=== PATIENT | male | born 1985 | race Asian ===

== ENCOUNTER 2016-11-29 15:22 | Outpatient (CLI) | payer MEDICAID ==
[2016-11-29 18:23] LABS: BASOPHILS # (AUTO) 0.1 10^3/uL (0.0-0.1); BASOPHILS % (AUTO) 1.3 %; EOSINOPHILS # (AUTO) 0.1 10^3/uL (0.0-0.7); EOSINOPHILS % (AUTO) 1.6 %; HCT - HEMATOCRIT 44.2 % (42.0-52.0); HGB - HEMOGLOBIN 15.2 g/dL (14.0-18.0); LYMPHOCYTES # (AUTO) 1.3 10^3/uL (1.5-3.5); LYMPHOCYTES % (AUTO) 22.1 %; MEAN CORPUSCULAR HEMOGLOBIN 29.5 pg (27.0-31.0); MEAN CORPUSCULAR HGB CONC 34.4 g/dL (32.0-36.0); MEAN CORPUSCULAR VOLUME 85.7 fL (80.0-94.0); MEAN PLATELET VOLUME 10.3 fL (7.4-11.4); MONOCYTES # (AUTO) 0.7 10^3/uL (0.0-1.0); MONOCYTES % (AUTO) 11.6 %; NEUTROPHILS # (AUTO) 3.7 10^3/uL (1.5-6.6); NEUTROPHILS % (AUTO) 63.4 %; RED BLOOD COUNT 5.15 10^6/uL (4.70-6.10); RED CELL DISTRIBUTION WIDTH 12.6 % (12.0-15.0); UNCORRECTED WHITE BLOOD COUNT 5.7 x10^3/uL; WHITE BLOOD COUNT 5.7 x10^3/uL (4.8-10.8)
[2016-11-29 18:40] LABS: ALBUMIN/GLOBULIN RATIO 1.8 (1.0-2.2); BILIRUBIN,TOTAL 1.1 mg/dL (0.2-1.0); CALCIUM 9.5 mg/dL (8.5-10.3); CREATININE 0.9 mg/dL (0.6-1.2); POTASSIUM 3.8 mmol/L (3.5-5.0); TOTAL PROTEIN 7.7 g/dL (6.7-8.2)
[2016-11-29 18:44] LABS: MONO NEG QC NEGATIVE (Negative); MONO POS QC POSITIVE (Positive)
== END 2016-11-29 15:23 | disposition home or self-care (01) ==
LOC: LAB.F 15:22
PROVIDERS: ATTEND Nurse Practitioner Family
DX: R59.1 Generalized enlarged lymph nodes (principal); R53.83 Other fatigue
CPT/HCPCS: 36415; 80053; 84443; 85025; 86308

== ENCOUNTER 2016-12-13 08:00 | Outpatient (CLI) | payer MEDICAID ==
[2016-12-13 19:32] LABS: IRON 74 ug/dL (45-182); TOTAL IRON BINDING CAPACITY 294 ug/dL (250-450); TRANSFERRIN 210 mg/dL (180-329)
[2016-12-14 10:17] LABS: TEST RESULT REPORT (())
[2016-12-15 13:33] LABS: ANA SCREEN NEGATIVE (NEGATIVE)
== END 2016-12-13 08:01 | disposition home or self-care (01) ==
LOC: LAB.F 08:00
PROVIDERS: ATTEND Nurse Practitioner Family
DX: R53.83 Other fatigue (principal)
CPT/HCPCS: 36415; 81599; 82607; 83540; 84466; 85651; 86038; 86140; 86430; 86592; 86695; 86696; 86803; 87389; 87491; 87591

== ENCOUNTER 2017-01-04 11:35 | Outpatient (CLI) | payer MEDICAID ==
--- NOTE | 2017-01-04 17:12 | CT Report ---
CT SINUSES WITHOUT CONTRAST: 01/04/2017 CLINICAL INDICATION: Malaise and fatigue. TECHNIQUE: Axial CT images of the paranasal sinuses were obtained without contrast, following which sagittal and coronal reconstructions were performed. FINDINGS: There is mild mucosal thickening in the left maxillary sinus. Postoperative changes are s een in the medial wall of the left maxillary sinus. Roby air cells are seen in the superior portio n of the right maxillary sinus. The osteomeatal units are patent. The septum is midline. The ethmo id air cells, sphenoid sinus, and frontal sinuses are unremarkable. 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 IMPRESSION: MILD CHRONIC SINUS DISEASE IN THE LEFT MAXILLARY SINUS. In accordance with CT protocol optimization, one or more of the following dose reduction techniques w ere utilized for this exam: automated exposure control, adjustment of mA and/or KV based on patient size, or use of iterative reconstructive technique. JOB #: [id number] EXT JOB #:[id number]
== END 2017-01-04 11:36 | disposition home or self-care (01) ==
LOC: DI 11:35
PROVIDERS: ATTEND Nurse Practitioner Family
DX: R53.81 Other malaise (principal); R53.83 Other fatigue
CPT/HCPCS: 70486

== ENCOUNTER 2020-08-27 10:47 | Emergency (ER) | payer MEDICAID ==
[2020-08-27 10:59] VITALS: BP 147/81
--- NOTE | 2020-08-27 11:10 | ED Physician Documentation ---
PD HPI LOWER EXT INJURY - Stated complaint Stated Complaint: RT FOOT PX - Chief complaint Chief Complaint: Ext Problem - History obtained from History obtained from: Patient - History of Present Illness PD HPI LOW EXT INJURY LOCATION: Right, Foot (5th) Where injury occurred: Home Pain level max: 6 Pain level now: 4 Improved by: Rest Worsened by: Moving, Palpating Associated symptoms: No: Weakness, Numbness, Tingling, Swelling, Discolored Contributing factors: No: Anticoagulated Recently seen: Not recently seen - Additional information Additional information: 34-year-old male states that he stubbed his right fifth toe at home today. Concerned that it may be broken. Worse with movement, better with rest. No swelling. No changes in color. Review of Systems Constitutional: denies: Fever, Chills Respiratory: denies: Cough GI: denies: Nausea, Vomiting, Diarrhea Skin: denies: Rash Musculoskeletal: denies: Neck pain, Back pain Neurologic: denies: Headache PD PAST MEDICAL HISTORY - Past Medical History Past Medical History: No Cardiovascular: None Respiratory: None Endocrine/Autoimmune: None GI: None : None HEENT: None Psych: None Musculoskeletal: None Derm: None - Past Surgical History Past Surgical History: Yes - Present Medications Home Medications: Ambulatory Orders Medication Instructions Recorded Confirmed No Known Home Medications 07/02/15 03/11/16 - Allergies Allergies/Adverse Reactions: Allergies Allergy/AdvReac Type Severity Reaction Status Date / Time No Known Drug Allergies Allergy Verified 07/02/15 14:27 - Social History Does the pt smoke?: No Smoking Status: Never smoker Does the pt drink ETOH?: Yes Does the pt have substance abuse?: No - Immunizations Immunizations are current?: Yes Immunizations: TDAP >10years/unknown - POLST Patient has POLST: No PD ED PE NORMAL - Vitals Vital signs reviewed: Yes - General General: Alert and oriented X 3, No acute distress - HEENT HEENT: Moist mucous membranes - Respiratory Respiratory: No respiratory distress - Derm Derm: Warm and dry - Extremities Extremities: Other (Tender to palpation over the proximal phalanx of the right fifth toe. Otherwise normal examination of the right foot. No swelling. No ecchymosis. Neurovascular intact) - Neuro Neuro: Alert and oriented X 3 Results - Vitals Vitals: Vital Signs - 24 hr 08/27/20 10:55 Temperature 36.5 C Heart Rate 81 Respiratory 18 Rate Blood Pressure 147/81 H O2 Saturation 100 Oxygen O2 Source Room air - Rads (name of study) R 5th toe xray Radiology: Prelim report reviewed, EMP read contemporaneously, See rad report (Mild soft tissue swelling is present adjacent to what appears to be an articular margin fracture, measuring 1.5 x 2.5 mm, distal lateral aspect of the fifth proximal phalanx. ) PD MEDICAL DECISION MAKING - ED course Complexity details: reviewed results, re-evaluated patient, considered differential, d/w patient ED course: 34-year-old male with a possible articular margin fracture. Patient declines a postop shoe and trinity taping. Patient will weight-bear as tolerated. Patient counseled regarding signs and symptoms for which I believe and urgent re- evaluation would be necessary. Patient with good understanding of and agreement to plan and is comfortable going home at this time This document was made in part using voice recognition software. While efforts are made to proofread this document, sound alike and grammatical errors may occur. Departure - Departure Disposition: 01 Home, Self Care Clinical Impression: Fracture of fifth toe, right, closed Qualifiers: Encounter type: initial encounter Qualified Code(s): S92.501A - Displaced unspecified fracture of right lesser toe(s), initial encounter for closed fracture Condition: Good Instructions: ED Fx Toe Closed Follow-Up: your,doctor in 1 week [Other] Comments: Follow-up with your doctor for further care. Return if you worsen. There is likely a small fracture on your x-ray today, this should heal without difficulty. You may bear weight as tolerated. You can use Motrin or Tylenol as needed for pain. Discharge Date/Time: 08/27/20 12:00
--- NOTE | 2020-08-27 11:36 | XRAY Report ---
PROCEDURE: Toe(s) RT INDICATIONS: fall, R 5th MT and 5th toe pain TECHNIQUE: 3 views of the fifth toe(s) acquired. COMPARISON: None FINDINGS: Bones: No fractures or dislocations involving the fifth metatarsal is found. There is a small articu lar margin fracture found at the distal lateral margin of the fifth proximal phalangeal articular bor irina.. No suspicious bony lesions. Soft tissues: No suspicious soft tissue densities. IMPRESSION: Mild soft tissue swelling is present adjacent to what appears to be an articular margin fracture, richard suring 1.5 x 2.5 mm, distal lateral aspect of the fifth proximal phalanx. Reviewed by: Steven Muhammad MD on 08/27/2020 11:34 AM PDT Approved by: Steven Muhammad MD on 08/27/2020 11:34 AM PDT Station ID: [id number]
== END 2020-08-27 12:00 | disposition home or self-care (01) ==
LOC: ED 10:47
DX: S92.511A Displaced fracture of proximal phalanx of right lesser toe(s), initial encounter for closed fracture (principal); W22.8XXA Striking against or struck by other objects, initial encounter; Y92.009 Unspecified place in unspecified non-institutional (private) residence as the place of occurrence of the external cause
CPT/HCPCS: 99282; 99283

== ENCOUNTER 2020-11-24 14:16 | Emergency (ER) | payer MEDICAID ==
--- NOTE | 2020-11-24 15:03 | XRAY Report ---
PROCEDURE: Foot 3 View LT INDICATIONS: Trauma TECHNIQUE: 3 views of the foot were acquired. COMPARISON: None. FINDINGS: Bones: No fractures or dislocations. No suspicious bony lesions. Soft tissues: No tibiotalar joint effusion. Achilles tendon appears normal. IMPRESSION: No trauma found. Reviewed by: Steven Muhammad MD on 11/24/2020 3:02 PM PDT Approved by: Steven Muhammad MD on 11/24/2020 3:02 PM PDT Station ID: [id number]
[2020-11-24] MEDS ORDERED: BUFFERED LIDOCAINE 10 ML SYRINGE SUBQ STA (17:39)
[2020-11-24] MEDS ORDERED: HYDROmorphone 1 MG/ML CARPUJECT IVP STA (17:40)
[2020-11-24] MEDS ORDERED: BACITRACIN ZINC OINT 1 PACKET TOP STA (17:40)
--- NOTE | 2020-11-24 17:41 | ED Physician Documentation ---
History of Present Illness - Stated complaint Stated Complaint: L FOOT PX - Chief complaint Chief Complaint: Trauma Ext - Additonal information Additional information: 35-year-old male presents the emergency department for evaluation of acute left foot pain. He got up this morning to use the restroom at about 430 and stubbed his foot hard on the door. No history of previous injury. He presents with swelling and tenderness on the left lateral distal foot. Review of Systems Constitutional: denies: Fever, Chills Eyes: reports: Reviewed and negative Nose: reports: Reviewed and negative Throat: reports: Reviewed and negative Cardiac: reports: Reviewed and negative Respiratory: reports: Reviewed and negative GI: reports: Reviewed and negative : denies: Dysuria, Frequency, Hesitancy Skin: reports: Laceration (s) (Left foot between the small and ring toe) Musculoskeletal: reports: Extremity pain (Left foot) Neurologic: reports: Reviewed and negative Psychiatric: reports: Reviewed and negative PD PAST MEDICAL HISTORY - Past Medical History Cardiovascular: None Respiratory: None Endocrine/Autoimmune: None GI: None : None HEENT: None Psych: None Musculoskeletal: None Derm: None - Past Surgical History Past Surgical History: Yes - Present Medications Home Medications: Ambulatory Orders Medication Instructions Recorded Confirmed HYDROcod/ACETAM 5/325 [[place] 5/325] 1 tablet PO BID PRN #10 tablet 11/24/20 cephALEXin [Keflex] 500 mg PO Q6H #28 11/24/20 - Allergies Allergies/Adverse Reactions: Allergies Allergy/AdvReac Type Severity Reaction Status Date / Time No Known Drug Allergies Allergy Verified 11/24/20 14:36 - Social History Does the pt smoke?: No Smoking Status: Never smoker Does the pt drink ETOH?: Yes Does the pt have substance abuse?: No - Immunizations Immunizations are current?: Yes Immunizations: TDAP >10years/unknown - POLST Patient has POLST: No PD ED PE EXPANDED - General General: Alert, No acute distress - Extremities Extremities: Left foot (Swelling tenderness and ecchymosis left lateral foot at MCP joints of the small and ring toe. There is a 2 cm laceration in the webbing between the small and ring toe.) Results - Vitals Vitals: Vital Signs - 24 hr 11/24/20 14:32 Temperature 36.8 C Heart Rate 89 Respiratory 16 Rate Blood Pressure 150/79 H O2 Saturation 100 Oxygen O2 Source Room air - Rads (name of study) left foot Radiology: Final report received (No acute fracture or dislocation) Procedures - Laceration (location) left foot Length in cm: 2.5 Wound type: Linear, Irregular, Into muscle, Heavily Contaminated Neurovascular status: Sensory intact, Motor intact Tendon involvement: Tendon intact Anesthesia: Lidocaine 1% Wound preparation: Chlorhexadine, Irrigated copiously NS, Debrided moderately, Wound explored Skin layer closure: Interrupted, Size #-0 - enter number (4), Sutures - enter # (5) Other: Patient tolerated well, Dressing applied, Tetanus UTD PD MEDICAL DECISION MAKING - ED course Complexity details: reviewed results, re-evaluated patient, d/w patient ED course: 35 year old male comes to the ED with left foot pain after stubbing it on a door this am. Xray without findings of fx. however he does have significant bruisi ng and contusion. unfortunately he also had a laceration in the webbing between the small and ring toe. It was heavily contaminated. wound copiously irrigated and approximated with [address] on keflex. tetnus is utd in 2016. Routine wound care discussed. I am prescribing a short course of short-acting opioid pain medication for this patient. I have reviewed the patients [employer] and no concerning findings were noted. I have discussed that the opioids are for short term therapy only, and will not be refilled from the ED. Departure - Departure Disposition: 01 Home, Self Care Clinical Impression: Contusion of left foot including toes Qualifiers: Encounter type: initial encounter Qualified Code(s): S90.32XA - Contusion of left foot, initial encounter; S90.122A - Contusion of left lesser toe(s) without damage to nail, initial encounter Foot laceration Qualifiers: Encounter type: initial encounter Laterality: left Qualified Code(s): S91.312A - Laceration without foreign body, left foot, initial encounter Condition: Stable Record reviewed to determine appropriate education?: Yes Prescriptions: cephALEXin [Keflex] 500 mg PO Q6H #28 HYDROcod/ACETAM 5/325 [[place] 5/325] 1 tablet PO BID PRN #10 tablet PRN Reason: Pain Comments: Sutures should be removed in 7 days. in 24 hours gently wash with warm soap and water, pat dry and apply antibviotic ointment Use the crutches to get around and wear the post op show until wound healed. Fill the rx for antibiotics. Return to the ED for concerns of infection I am prescribing a short course of narcotic pain medication for you. These are potentially dangerous and addictive medications that should be used carefully. These medications may constipate you. Take an izrw-bgl-dyyhoyi stool softener (docusate) twice daily with plenty of water while taking these medications. If you go 24 hours without a bowel movement, take mnjn-zql-tuawiet miralax, per package instructions. Do not drink or drive while taking these medications. If you received narcotic or sedating medications while in the emergency department, do not drive for 24 hours. Store this medication in a safe, secure place and out of reach of children. It is a violation of federal law to give or sell this medication to another person or to use in a manner other than prescribed. The ED will not refill narcotic prescriptions, including prescriptions lost or stolen. To dispose of unwanted medications: 1. [facility] at [address] [place] [address] in [place] has a medication drop box. They accept prescription medications (in pill form) Sunday through Sunday 9:00 a.m. to 5:00 p.m. 2. The [facility] accepts prescription medications (in pill form only) for disposal year round. Call for more information. 3. Contact the [facility] for the next [facility] sponsored prescription drug collection event. , [phone], or [phone]; Note that many narcotic pain relievers also contain Tylenol/acetaminophen. Please ensure that your total dose of acetaminophen from all sources does not exceed 3 g (3000 mg) per day.
[2020-11-24] MEDS ORDERED: HYDROmorphone 1 MG/ML CARPUJECT IM STA ×2 (18:08→19:50)
[2020-11-24] MEDS ORDERED: cefTRIAXone 1 GM VIAL IM STA (19:17)
[2020-11-24] MEDS ORDERED: LIDOCAINE 1% 2 ML VIAL MC ONE (19:17)
[2020-11-24 20:00] VITALS: BP 147/85
== END 2020-11-24 20:05 | disposition home or self-care (01) ==
LOC: ED 14:16
DX: S90.32XA Contusion of left foot, initial encounter (principal); S91.312A Laceration without foreign body, left foot, initial encounter; W22.8XXA Striking against or struck by other objects, initial encounter
CPT/HCPCS: 12041; 73630; 96372; 96374; 99283; A9270; J1170

== ENCOUNTER 2020-12-01 12:17 | Emergency (ER) | payer MEDICAID ==
[2020-12-01 12:32] VITALS: BP 130/84
--- NOTE | 2020-12-01 12:38 | ED Physician Documentation ---
History of Present Illness - Stated complaint Stated Complaint: STITCH REMOVAL - Additonal information Additional information: 35-year-old male presents emergency department for evaluation of laceration sustained 1 week ago when he stubbed his toe on a door. He sustained a lacer ation between the fourth and fifth toes on his left foot. There was no fracture but given the location and the depth of the wound he was placed on antibiotics. He reports pain is been well controlled he has completed the course of cephalexin. Here today for suture removal. Review of Systems Constitutional: reports: Reviewed and negative Throat: reports: Reviewed and negative Cardiac: reports: Reviewed and negative Respiratory: reports: Reviewed and negative GI: reports: Reviewed and negative : reports: Reviewed and negative Skin: reports: Laceration (s) (Left foot) Musculoskeletal: reports: Extremity pain (Left foot) PD PAST MEDICAL HISTORY - Past Medical History Cardiovascular: None Respiratory: None Endocrine/Autoimmune: None GI: None : None HEENT: None Psych: None Musculoskeletal: None Derm: None - Past Surgical History Past Surgical History: Yes - Present Medications Home Medications: Ambulatory Orders Medication Instructions Recorded Confirmed HYDROcod/ACETAM 5/325 [[place] 5/325] 1 tablet PO BID PRN #10 tablet 11/24/20 12/01/20 cephALEXin [Keflex] 500 mg PO Q6H #28 11/24/20 12/01/20 - Allergies Allergies/Adverse Reactions: Allergies Allergy/AdvReac Type Severity Reaction Status Date / Time No Known Drug Allergies Allergy Verified 12/01/20 12:32 - Social History Does the pt smoke?: No Smoking Status: Never smoker Does the pt drink ETOH?: Yes Does the pt have substance abuse?: No - Immunizations Immunizations are current?: Yes Immunizations: TDAP >10years/unknown - POLST Patient has POLST: No PD ED PE EXPANDED - Derm Derm: Laceration(s) (Well-healed laceration in the webbing of the fourth and fifth toes of the left foot. No drainage or surrounding erythema. 5 sutures are intact and were removed fully by this provider. pt tolerated well) Results - Vitals Vitals: Vital Signs - 24 hr 12/01/20 12:30 Temperature 36.0 C L Heart Rate 73 Respiratory 16 Rate Blood Pressure 130/84 H O2 Saturation 98 Oxygen O2 Source Room air PD MEDICAL DECISION MAKING - ED course Complexity details: d/w patient ED course: 35-year-old male presents emergency department for suture removal on his left foot after an injury sustained about 1 week ago. The laceration between the webbing of the fourth and fifth toes has healed well. 5 sutures were removed intact. The area remains somewhat tender but no surrounding signs of infection. Routine wound care and emergent return precautions were discussed. Departure - Departure Disposition: 01 Home, Self Care Clinical Impression: Encounter for removal of sutures Condition: Stable Record reviewed to determine appropriate education?: Yes Comments: Giovany done a good job caring for your laceration. I recommend that you continue to wash the area gently with warm soap and water apply any antibiotic ointment. It may still take about 7 to 10 days before this is fully healed. Return to the ER if you have any further concerns with the wound or feel that has become infected.
== END 2020-12-01 12:42 | disposition home or self-care (01) ==
LOC: ED 12:17
DX: S91.312D Laceration without foreign body, left foot, subsequent encounter (principal); W22.09XD Striking against other stationary object, subsequent encounter
CPT/HCPCS: 99281